=== PATIENT | male | born 1950 | race Caucasian/White ===

== ENCOUNTER 2020-08-15 06:02 | Outpatient (REF) | payer MEDICARE, SELFPAY ==
[2020-08-15 07:04] LABS: Basophils Absolute Auto 0.1 X10*3/uL (0.0-0.2); Basophils Percent Auto 1.1 % (0-2); Eosinophils Absolute Auto 0.2 X10*3/uL (0.0-0.4); Eosinophils Percent Auto 3.7 % (0-4); Hematocrit 42.2 % (42-52); Hemoglobin 13.5 g/dl (14.0-18.0); Imm Gran Abs Auto 0.01 X10*3/uL (0.00-0.03); Imm Gran Pct Auto 0.2 % (0.0-0.4); Lymphocytes Absolute Auto 1.5 X10*3/uL (1.2-4.9); Lymphocytes Percent Auto 34.9 % (20-40); MANUAL DIFF FLAG NO; Mean Corpuscular Hemoglobin 30.1 pg (27.0-33.0); Mean Corpuscular Volume 94.2 fL (80-98); Mean Platelet Volume 9.6 fL (9.4-12.4); Monocytes Absolute Auto 0.4 X10*3/uL (0.1-1.2); Monocytes Percent Auto 9.9 % (2-11); Neutrophils Absolute Auto 2.2 X10*3/uL (2.0-8.3); Neutrophils Percent Auto 50.2 % (45-73); Platelet Count 211 X10*3/uL (160-400); Red Blood Count 4.48 X10*6/uL (4.60-5.80); Red Cell Distribution Width 13.2 % (11.0-16.0); White Blood Count 4.4 X10*3/uL (4.8-10.8)
[2020-08-15 07:50] LABS: Alanine Aminotransferase 18 U/L (0-40); Alkaline Phosphatase 102 U/L (39-117); Anion Gap 10 (12-20); Aspartate Amino Transferase 26 U/L (5-37); Bilirubin Total 0.9 mg/dL (0.0-1.0); Blood Urea Nitrogen 14 mg/dL (9-16); Calcium 9.3 mg/dL (8.4-10.2); Carbon Dioxide 30 mmol/L (22-29); Chloride 104 mmol/L (96-108); Cholesterol 220 mg/dL; Estimated Glomerular Filt Rate > 60; Glucose Fasting 87 mg/dL (60-99); HDL Cholesterol 66 mg/dL; LDL Cholesterol Calculated 138 mg/dl; Potassium 4.3 mmol/l (3.3-5.1); Sodium 140 mmol/L (135-145); Total Protein 6.5 g/dL (6.5-8.0); Triglycerides 80 mg/dL
[2020-08-15 08:14] LABS: Prostate Specific Antigen Scr 2.45 ng/mL (<0.05-4.0)
== END 2020-08-15 06:03 | disposition home or self-care (01) ==
LOC: HO.LAB 06:02
PROVIDERS: PCP Internal Medicine; Visit Provider Internal Medicine
DX: Z00.00 Encounter for general adult medical examination without abnormal findings (principal); E11.9 Type 2 diabetes mellitus without complications; R35.1 Nocturia
CPT/HCPCS: 36415; 80053; 80061; 84153; 85025

== ENCOUNTER 2021-10-27 05:58 | Outpatient (REF) | payer MEDICARE, SELFPAY ==
[2021-10-27 06:07] LABS: MANUAL DIFF FLAG NO
[2021-10-27 07:06] LABS: Basophils Absolute Auto 0.1 X10*3/uL (0.0-0.2); Basophils Percent Auto 1.1 % (0-2); Eosinophils Absolute Auto 0.2 X10*3/uL (0.0-0.4); Eosinophils Percent Auto 3.7 % (0-4); Hematocrit 41.7 % (42.0-52.0); Hemoglobin 13.5 g/dl (14.0-18.0); Imm Gran Abs Auto 0.01 X10*3/uL (0.00-0.03); Imm Gran Pct Auto 0.2 % (0.0-0.4); Lymphocytes Absolute Auto 1.5 X10*3/uL (1.2-4.9); Lymphocytes Percent Auto 33.8 % (20-40); Mean Corpuscular HGB Conc 32.4 g/dl (31.0-36.0); Mean Corpuscular Hemoglobin 30.5 pg (27.0-33.0); Mean Corpuscular Volume 94.1 fL (80.0-98.0); Mean Platelet Volume 9.8 fL (9.4-12.4); Monocytes Absolute Auto 0.5 X10*3/uL (0.1-1.2); Monocytes Percent Auto 11.6 % (2-11); Neutrophils Absolute Auto 2.2 x10*3/uL (2.0-8.3); Neutrophils Percent Auto 49.6 % (45-73); Platelet Count 206 X10*3/uL (160-400); Red Blood Count 4.43 X10*6/uL (4.60-5.80); Red Cell Distribution Width 12.7 % (11.0-16.0); White Blood Count 4.4 X10*3/uL (4.8-10.8)
[2021-10-27 07:12] LABS: Alanine Aminotransferase 15 U/L (0-40); Albumin Level 3.9 g/dL (3.5-5.0); Alkaline Phosphatase 91 U/L (39-117); Anion Gap 10 (12-20); Aspartate Amino Transferase 25 U/L (5-37); Bilirubin Total 0.9 mg/dL (0.0-1.0); Blood Urea Nitrogen 15 mg/dL (9-16); Calcium 9.5 mg/dL (8.4-10.2); Carbon Dioxide 30 mmol/L (22-29); Chloride 105 mmol/L (96-108); Cholesterol 212 mg/dL; Estimated Glomerular Filt Rate > 60; Glucose Fasting 89 mg/dL (60-99); HDL Cholesterol 62 mg/dL; LDL Cholesterol Calculated 135 mg/dl; Potassium 4.5 mmol/L (3.3-5.1); Sodium 140 mmol/L (135-145); Total Protein 6.2 g/dL (6.5-8.0); Triglycerides 78 mg/dL
[2021-10-27 07:34] LABS: Prostate Specific Antigen Scr 2.76 ng/mL (<0.05-4.0)
== END 2021-10-27 05:59 | disposition home or self-care (01) ==
LOC: HO.LAB 05:58
PROVIDERS: PCP Internal Medicine; Visit Provider Internal Medicine
DX: Z00.00 Encounter for general adult medical examination without abnormal findings (principal); Z13.0 Encounter for screening for diseases of the blood and blood-forming organs and certain disorders involving the immune mechanism; Z12.5 Encounter for screening for malignant neoplasm of prostate
CPT/HCPCS: 36415; 80053; 80061; 84153; 85025

== ENCOUNTER 2022-12-31 06:03 | Outpatient (REF) | payer MEDICARE, SELFPAY ==
[2022-12-31 06:11] LABS: MANUAL DIFF FLAG NO
[2022-12-31 06:54] LABS: Basophils Absolute Auto 0.1 X10*3/uL (0.0-0.2); Basophils Percent Auto 1.3 % (0-2); Eosinophils Absolute Auto 0.2 X10*3/uL (0.0-0.4); Eosinophils Percent Auto 3.4 % (0-4); Hematocrit 43.4 % (42.0-52.0); Hemoglobin 14.1 g/dl (14.0-18.0); Imm Gran Abs Auto 0.02 X10*3/uL (0.00-0.03); Imm Gran Pct Auto 0.4 % (0.0-0.4); Lymphocytes Absolute Auto 1.6 X10*3/uL (1.2-4.9); Lymphocytes Percent Auto 33.9 % (20-40); Mean Corpuscular HGB Conc 32.5 g/dl (31.0-36.0); Mean Corpuscular Hemoglobin 30.2 pg (27.0-33.0); Mean Corpuscular Volume 92.9 fL (80.0-98.0); Mean Platelet Volume 9.7 fL (9.4-12.4); Monocytes Absolute Auto 0.5 X10*3/uL (0.1-1.2); Monocytes Percent Auto 9.6 % (2-11); Neutrophils Absolute Auto 2.4 x10*3/uL (2.0-8.3); Neutrophils Percent Auto 51.4 % (45-73); Platelet Count 221 X10*3/uL (160-400); Red Blood Count 4.67 X10*6/uL (4.60-5.80); Red Cell Distribution Width 12.7 % (11.0-16.0); White Blood Count 4.7 X10*3/uL (4.8-10.8)
[2022-12-31 07:47] LABS: Alanine Aminotransferase 17 U/L (0-40); Albumin Level 4.1 g/dL (3.5-5.0); Alkaline Phosphatase 97 U/L (39-117); Anion Gap 11 (12-20); Aspartate Amino Transferase 25 U/L (5-37); Blood Urea Nitrogen 20 mg/dL (9-16); Calcium 9.6 mg/dL (8.4-10.2); Carbon Dioxide 30 mmol/L (22-29); Chloride 107 mmol/L (96-108); Cholesterol 234 mg/dL; Estimated Glomerular Filt Rate > 60; Glucose Fasting 86 mg/dL (60-99); HDL Cholesterol 66 mg/dL; LDL Cholesterol Calculated 152 mg/dl; Potassium 4.2 mmol/L (3.3-5.1); Prostate Specific Antigen Scr 2.79 ng/mL (<0.05-4.0); Sodium 144 mmol/L (135-145); Thyroid Stimulating Hormone 2.31 uIU/mL (0.32-4.0); Total Protein 6.5 g/dL (6.5-8.0); Triglycerides 83 mg/dL
[2022-12-31 08:08] LABS: Phenytoin Dilantin < 1.8 ug/mL (10.0-20.0)
== END 2022-12-31 06:04 | disposition home or self-care (01) ==
LOC: HO.LAB 06:03
PROVIDERS: PCP Internal Medicine; Visit Provider Internal Medicine
DX: Z00.00 Encounter for general adult medical examination without abnormal findings (principal); E03.9 Hypothyroidism, unspecified; G40.909 Epilepsy, unspecified, not intractable, without status epilepticus; N28.9 Disorder of kidney and ureter, unspecified; D64.9 Anemia, unspecified; E78.5 Hyperlipidemia, unspecified; Z12.5 Encounter for screening for malignant neoplasm of prostate
CPT/HCPCS: 36415; 80053; 80061; 80185; 84153; 84443; 85025

== ENCOUNTER 2023-09-27 08:22 | Outpatient (AMB) | payer MEDICARE, SELFPAY ==
[2023-09-27 08:32] VITALS: BP 110/60; PULSE 45; O2SAT 98; BMI 23.0
--- NOTE | 2023-09-27 08:32 | A.OFFPC_ITS ---
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 Accompanied by: Self / Same As Patient Allergies No Known Allergies Allergy (Mild, Verified 09/27/23 08:33) NOT APPLICABLE Medication List - Last Reconciled 09/27/23 by Jaswinder Estevez MD amoxicillin-pot clavulanate 500-125 mg (Augmentin) 1 tab PO BID sildenafil (Viagra) 50 mg PO DAILY PRN Tobacco use date assessed: 09/27/23 Fall risk assessment: No Falls in past year Last assessed Fall Risk: 09/27/23 Dental Screening Dental Screen Date: 09/27/23 Did you have a dental visit in the last 12 months?: Yes Did you have a dental problem in the last 6 months where you did not have access to dental care?: No Was dental information given to patient?: Patient has dentist HPI Frequent Bowel Movement HPI Details urinary frequency and urgency for a month [facility] Surgical History No pertinent past surgical history Family History Father No problems noted. Mother No problems noted. Social History Housing: House Alcohol intake: current Alcohol intake frequency: a few times a month Patient Tobacco Use Status: Never used Tobacco e-Cigarette/Vaping Use: Never Used Second Hand Smoke Exposure: No service: No Current occupational status: retired Cognitive needs: No Hearing needs: No Vision needs: No Questionnaire PHQ-9 Over the last 2 weeks, how often have you been bothered by any of the following problems? 1. Little interest or pleasure in doing things: not at all 2. Feeling down, depressed, or hopeless: not at all 3. Trouble falling or staying asleep, or sleeping too much: not at all 4. Feeling tired or having little energy: not at all 5. Poor appetite or overeating: not at all 6. Feeling bad about yourself - or that you are a failure or have let yourself or your family down: not at all 7. Trouble concentrating on things, such as reading the newspaper or watching television: not at all 8. Moving or speaking so slowly that other people could have noticed. Or the opposite - being so fidgety or restless that you have been moving around a lot more than usual: not at all 9. Thoughts that you would be better off or of hurting yourself in some way: not at all Total score: 0 Depression Screening Interpretation: Negative Depression Screening Done: Yes 72255 - PHQ-9 Billing: Yes Source: Developed by Drs. Maximino Bardales, Nidia Estrella, Kervin Knowles and colleagues, with an educational carmelita from [employer]. Thrive Questionnaire Date Thrive assessed: 09/27/23 I am a: Patient What is your living situation today?: I have a steady place to live Within the past 12 months, did the food you bought not last and you didn't have the money to get more?: Never true Within the past 12 months, did you worry whether your food would run out before you got money to buy more?: Never true Do you have trouble paying for medicines?: No Do you have trouble getting transportation to medical appointments?: No Do you have trouble paying your heating and electricity bill?: No Do you have trouble taking care of your child, family member or friend?: No Do you have trouble with day-to-day activities such as bathing, preparing meals, shopping, managing finances, etc.?: No Are you currently unemployed and looking for a job?: No Are you interested in more education?: No Please select the resources that you would like help with: None THRIVE Score: 0 AUDIT C Alcohol Use Questionnaire (AUDIT-C) 1. How often do you have a drink containing alcohol?: 2-4 times a month 2. How many drinks containing alcohol do you have on a typical day when you are drinking?: 1 or 2 3. How often do you have six or more drinks on one occasion?: Never Total Score: 2 CYNTHIA-7 AMB Questionnaire CYNTHIA-7 Date CYNTHIA - 7 assessed: 09/27/23 Feeling nervous, anxious, or on edge: 0 = Not at all Not being able to stop or control worryin = Not at all Worrying too much about different things: 0 = Not at all Trouble relaxin = Not at all Being so restless that it is hard to sit still: 0 = Not at all Becoming easily annoyed or irritable: 0 = Not at all Feeling afraid as if something awful might happen: 0 = Not at all Total CYNTHIA-7 score (0-4 normal; 5-9 mild; 10-14 moderate; 15-21 severe): 0 Source: Developed by Drs. Maximino Bardales, Nidia Estrella, Kervin Knowles and colleagues, with an educational carmelita from [employer]. Review of Systems Const Denies chills, Denies headache(s) and Denies weight loss ENT Denies headache(s) Card Denies chest pain, Denies syncope, Denies irregular heart rhythm and Denies dyspnea Resp Denies chest congestion, Denies cough and Denies dyspnea GI Denies abdominal pain, Denies change in stool character, Denies nausea and Denies vomiting Musc Denies deformity and Denies joint swelling Neuro Denies syncope and Denies headache(s) Physical exam (Primary Care) Vital Signs: Last Vital Signs Pulse 45 L 09/27/23 08:32 BP 110/60 09/27/23 08:32 Pulse Ox 98 09/27/23 08:32 Oxygen Delivery Method Room Air 09/27/23 08:32 BMI result Body Mass Index 23.0 Tobacco/Smoking Status: Tobacco use Status Tobacco use date assessed 09/27/23 09/27/23 08:38 Patient Tobacco Use Status Never used Tobacco 09/27/23 08:38 e-Cigarette/Vaping Use Never Used 09/27/23 08:38 PHQ-9: PHQ-9 Score PHQ-9: Total score 0 09/27/23 08:39 Depression Screening Interpretation: Negative Thrive Assessment: Date of Thrive Assessment Date Thrive assessed 09/27/23 09/27/23 08:38 Const General: cooperative, comfortable, no acute distress and alert Neck Neck: Yes no lymphadenopathy Thyroid: Thyroid normal Resp Effort & Inspection: normal respiratory effort Auscultation: clear to auscultation bilaterally Percussion: percussion normal Cardio Jugular venous distension: no JVD Palpation: normal PMI Rate: regular rate Rhythm: regular rhythm Heart sounds: S1 normal heart sound present and S2 normal heart sound present GI Inspection: Yes normal to inspection Palpation (GI): No hepatosplenomegaly present Skin General skin exam: no rashes or lesions noted Extrem General: Yes no clubbing, cyanosis or edema Assessment and Plan Assessment & Plan (1) Urinary frequency: Code(s): R35.0 - Frequency of micturition Plan: labs and US Orders: Orders Lipid Panel Today E78.5 - Hyperlipidemia, unspecified Complete Blood Count Auto Diff Today D64.9 - Anemia, unspecified Comprehensive [place]. Panel Fast Today N28.9 - Disorder of kidney and ureter, unspecified UA and rflx microscopic Today N39.0 - Urinary tract infection, site not specified Prostate Specific Antigen Scr Today Z00.00 - Encounter for general adult medical examination without abnormal findings US abdomen complete Today R10.9 - Unspecified abdominal pain Coding Level of Care Code Est Pt Level 3 (26900) Diagnoses Urinary frequency R35.0
== END 2023-09-27 08:52 | disposition home or self-care (01) ==
PROVIDERS: PCP Internal Medicine; Visit Provider Internal Medicine
DX: R35.0 Frequency of micturition (principal)
CPT/HCPCS: 99213

== ENCOUNTER 2023-09-27 08:57 | Outpatient (REF) | payer MEDICARE, SELFPAY ==
[2023-09-27 09:26] LABS: MANUAL DIFF FLAG NO
[2023-09-27 10:11] LABS: Appearance Urine Clear; Color Urine Yellow; Glucose Urine UA Negative (Negative); Leukocyte Esterase Urine Trace (Negative); Nitrite Urine Negative (Negative); PH 6.5 (5.0-9.0); Specific Gravity - Urine 1.015 (1.005-1.025); UMIC TRIGGER UA YES; Urine Blood Negative (Negative); Urine Ketones Negative (Negative); Urine Protein Negative (Neg-Trace)
[2023-09-27 10:13] LABS: Bacteria Urine None Seen (None Seen); Hyaline Casts Urine 0-2 /LPF (0-2); RBC Urine 0-2 /HPF (0-2); Squamous Epithelial Cell Urine 0-2 /HPF (0-2); WBC Urine 0-5 /HPF (0-5)
[2023-09-27 10:15] LABS: Basophils Absolute Auto 0.1 X10*3/uL (0.0-0.2); Basophils Percent Auto 1.3 % (0-2); Eosinophils Absolute Auto 0.2 X10*3/uL (0.0-0.4); Eosinophils Percent Auto 4.5 % (0-4); Hematocrit 42.9 % (42.0-52.0); Hemoglobin 13.8 g/dl (14.0-18.0); Imm Gran Abs Auto 0.01 X10*3/uL (0.00-0.03); Imm Gran Pct Auto 0.3 % (0.0-0.4); Lymphocytes Absolute Auto 1.2 X10*3/uL (1.2-4.9); Mean Corpuscular HGB Conc 32.2 g/dl (31.0-36.0); Mean Corpuscular Hemoglobin 29.4 pg (27.0-33.0); Mean Corpuscular Volume 91.5 fL (80.0-98.0); Mean Platelet Volume 9.8 fL (9.4-12.4); Monocytes Absolute Auto 0.4 X10*3/uL (0.1-1.2); Monocytes Percent Auto 9.5 % (2-11); Neutrophils Absolute Auto 2.2 x10*3/uL (2.0-8.3); Neutrophils Percent Auto 55.4 % (45-73); Platelet Count 200 X10*3/uL (160-400); Red Blood Count 4.69 X10*6/uL (4.60-5.80)
[2023-09-27 10:44] LABS: Alanine Aminotransferase 16 U/L (0-40); Albumin Level 3.8 g/dL (3.5-5.0); Alkaline Phosphatase 113 U/L (39-117); Anion Gap 9 (12-20); Aspartate Amino Transferase 21 U/L (5-37); Bilirubin Total 0.5 mg/dL (0.0-1.0); Blood Urea Nitrogen 12 mg/dL (9-16); Calcium 9.3 mg/dL (8.4-10.2); Carbon Dioxide 31 mmol/L (22-29); Chloride 106 mmol/L (96-108); Cholesterol 198 mg/dL (<200); Estimated Glomerular Filt Rate > 60; Glucose Fasting 89 mg/dL (60-99); HDL Cholesterol 54 mg/dL (>40); LDL Cholesterol Calculated 128 mg/dL (<100); Potassium 4.4 mmol/L (3.3-5.1); Sodium 142 mmol/L (135-145); Total Protein 6.4 g/dL (6.5-8.0); Triglycerides 83 mg/dL (<150)
[2023-09-27 11:00] LABS: Prostate Specific Antigen Scr 3.25 ng/mL (<0.05-4.0)
== END 2023-09-27 08:58 | disposition home or self-care (01) ==
LOC: HO.LAB 08:57
PROVIDERS: PCP Internal Medicine; Visit Provider Internal Medicine
DX: Z00.00 Encounter for general adult medical examination without abnormal findings (principal); E78.5 Hyperlipidemia, unspecified; N28.9 Disorder of kidney and ureter, unspecified; D64.9 Anemia, unspecified; N39.0 Urinary tract infection, site not specified; Z12.5 Encounter for screening for malignant neoplasm of prostate
CPT/HCPCS: 36415; 80053; 80061; 81001; 84153; 85025

== ENCOUNTER 2023-10-06 08:53 | Outpatient (REF) | payer MEDICARE, SELFPAY ==
--- NOTE | ~2023-10-06 | US_ITS ---
EXAMINATION: US ABDOMEN COMPLETE CLINICAL INFORMATION: Abdominal pain. COMPARISON: None available. TECHNIQUE: Real-time imaging of the abdominal viscera. FINDINGS: PANCREAS: Pancreas is obscured by bowel gas and not clearly seen. ABDOMINAL AORTA: The proximal, mid, and distal segments are normal in caliber. INFERIOR VENA CAVA: Visualized portions are normal. LIVER: There is increased echogenicity of the liver due to hepatic steatosis. The liver is normal in size. The liver contour is normal. There are multiple calcified focal lesions measured between 0.3 and 0.4 cm, most likely due to granulomatous disease and no hypoechoic hepatic lesion. There is no intrahepatic biliary duct dilatation seen. GALLBLADDER: The gallbladder is physiologically distended without evidence of stones, sludge, wall thickening or pericholecystic fluid. There is small approximately 0.4 x 0.4 x 0.2 cm polyp. COMMON BILE DUCT: Normal in caliber measuring 0.2 cm in diameter. RIGHT KIDNEY: Normal. No hydronephrosis. No renal calculi or focal parenchymal lesions. The kidney measures 10.0 cm in maximum dimension. LEFT KIDNEY: Normal. No hydronephrosis. No renal calculi or focal parenchymal lesions. The kidney measures 9.6 cm in maximum dimension. SPLEEN: Normal. The spleen measures 10.5 cm in maximum dimension. FREE FLUID: There is loculated fluid collection, too large to measure extending from the sternum to her the urinary bladder without definite connection to the bladder, with thin septations and not vascular Urinary bladder is over distended with single injected on the right visualized and irregularity also wall. There is large amount of post void volume and debris. Visualized prostate is heterogeneous and enlarged. US/US abdomen complete IMPRESSION: 1. Unclear origin cystic structure extending between sternum and urinary bladder along the midline, too large to measure. 2. Over distended urinary bladder with large and irregular wall 3. Prostate hypertrophy 4. Gallbladder polyp 5. Hepatic steatosis 6. Granulomatous disease of liver 7. Nonvisualization of pancreas Recommendations: CT scan of the abdomen and pelvis
== END 2023-10-06 08:54 | disposition home or self-care (01) ==
LOC: HO.HMGCX 08:53
PROVIDERS: PCP Internal Medicine; Visit Provider Internal Medicine
DX: R10.9 Unspecified abdominal pain (principal)
CPT/HCPCS: 76700

== ENCOUNTER 2023-11-24 07:23 | Outpatient (REF) | payer MEDICARE, SELFPAY ==
--- NOTE | ~2023-11-24 | CT_ITS ---
EXAMINATION: CT ABDOMEN AND PELVIS WITH CONTRAST CLINICAL INFORMATION: Abdominal pain. COMPARISON: Abdominal ultrasound 10/06/2023. TECHNIQUE: Multidetector volumetric images were obtained from the superior aspect of the liver through the pubic symphysis following administration 85 mL of Omnipaque 350 intravenous contrast. Sagittal and coronal reformatted images were obtained on the technologist's workstation. Oral contrast: No This CT examination was performed using dose optimization techniques as appropriate, variously including the following: *Automated exposure control *Adjustment of mA and/or kV according to patient size (this includes techniques or standardized protocols for targeted exams where dose is matched to indication/reason for exam; i.e. extremities or head) *Use of iterative reconstruction technique DLP: 304 mGy-cm FINDINGS: LUNG BASES: No suspicious lung nodules. LIVER, GALLBLADDER, AND BILIARY TREE: Liver is normal in size and attenuation. Scattered calcified granulomas. No discrete liver mass. No biliary ductal dilatation. The gallbladder is unremarkable with no evidence of radiopaque gallstones, gallbladder wall thickening, or obvious pericholecystic inflammatory changes. PANCREAS: No discrete pancreatic mass or pancreatic ductal dilatation. SPLEEN: The spleen is normal in size. ADRENAL GLANDS: No adrenal mass. KIDNEYS AND URETERS: 3 mm calculus upper pole left kidney. Punctate calculus lower pole left kidney. No evidence of obstruction. Symmetric nephrograms. No suspicious renal mass. No hydroureteronephrosis. BLADDER: Distended urinary bladder with large superior diverticulum. The bladder measures 15 x 10 x 25 cm for an approximate volume of 1.8 L. Layering calculi at the right posterolateral bladder measuring 1.1 x 2 x 0.7 cm. No discrete intramural mass. GASTROINTESTINAL TRACT: Small hiatal hernia. The small bowel is normal in caliber. Mild colonic diverticulosis. ABDOMINAL WALL: Diastases recti. Small fat-containing umbilical hernia. LYMPH NODES: No lymphadenopathy. VASCULAR: No aortic aneurysm. Mild aortoiliac atherosclerosis. PELVIC VISCERA: The prostate is not enlarged. OSSEOUS STRUCTURES: Degenerative changes in the spine and hips. CT/CT abdomen pelvis w IV con IMPRESSION: Massively distended urinary bladder with large superior diverticulum with estimated volume approximately 1.8 L. Finding corresponds to the recent abdominal ultrasound. No hydronephrosis. Nonobstructing left renal calculi. Fleischner guidelines were followed.
[2023-11-24] MEDS: iohexoL 350 MG/ML 100 ML INFUS..BTL IV (10:26)
[2023-11-24 16:44] LABS: Creatinine POC 0.7 mg/dL (0.5-1.4); GFR POC > 60
== END 2023-11-24 07:24 | disposition home or self-care (01) ==
LOC: HO.CT 07:23
PROVIDERS: PCP Internal Medicine; Visit Provider Internal Medicine
DX: R10.9 Unspecified abdominal pain (principal); N20.0 Calculus of kidney; N32.89 Other specified disorders of bladder
CPT/HCPCS: 74177; 82565; Q9967

== ENCOUNTER 2024-03-06 12:54 | Outpatient (AMB) | payer MEDICARE, SELFPAY ==
--- NOTE | 2024-03-06 13:03 | A.OFFPC_ITS ---
Vital Signs 03/06/24 13:04 Height 5 ft 11 in Weight 161 lb 8 oz BMI 22.5 BP 98/60 Blood Pressure Location Lt brachial Position Sitting Pulse 55 Pulse Source Pulse Oximeter Pulse Oximetry (%) 97 Oxygen Delivery Method Room Air Intake Visit Reasons: pe Intake Note: Patient is here today for a physical. 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 Mother No problems noted. Social History Housing: House Alcohol intake: current Alcohol intake frequency: a few times a month Patient Tobacco Use Status: Never used Tobacco e-Cigarette/Vaping Use: Never Used Second Hand Smoke Exposure: No service: No Current occupational status: retired Cognitive needs: No Hearing needs: No Vision needs: No Questionnaire Thrive Questionnaire Date Thrive assessed: 09/27/23 CYNTHIA-7 AMB Questionnaire CYNTHIA-7 Date CYNTHIA - 7 assessed: 09/27/23 Source: Developed by Drs. Maximino Bardales, Nidia Estrella, Kervin Knowles and colleagues, with an educational carmelita from [employer] Review of Systems Const Denies chills, Denies fatigue, Denies headache(s) and Denies weight loss Eyes Denies change in vision, Denies diplopia and Denies eye pain ENT Denies vertigo, Denies dizziness, Denies headache(s) and Denies nasal discharge Card Denies chest pain, Denies rapid heart rate and Denies dyspnea on exertion Resp Denies chest congestion, Denies cough, Denies pain with cough and Denies dyspnea on exertion GI Denies abdominal pain, Denies hematochezia and Denies change in bowel habits Musc Denies myalgias, Denies arthralgias and Denies joint swelling Skin/Breast Denies lesions and Denies unusual bruising Neuro Denies vertigo, Denies dizziness, Denies headache(s) and Denies focal weakness Endo Denies fatigue Physical exam (Primary Care) Vital Signs: Last Vital Signs Pulse 55 03/06/24 13:04 BP 98/60 03/06/24 13:04 Pulse Ox 97 03/06/24 13:04 Oxygen Delivery Method Room Air 03/06/24 13:04 BMI result Body Mass Index 22.5 Tobacco/Smoking Status: Tobacco use Status Tobacco use date assessed 03/06/24 03/06/24 13:07 Patient Tobacco Use Status Never used Tobacco 03/06/24 13:07 e-Cigarette/Vaping Use Never Used 03/06/24 13:07 Thrive Assessment: Date of Thrive Assessment Date Thrive assessed 09/27/23 03/06/24 13:07 Const General: cooperative, healthy appearing and no acute distress Orientation/consciousness: oriented to person, oriented to place and oriented to time HENMT Head: Yes normal to inspection, Yes normocephalic and Yes atraumatic Mouth: Normal oral and palatal mucosa present and tongue normal Throat: Yes posterior oropharynx normal and Yes uvula midline Eyes General: appearance normal, both eyes and all related structures Neck Neck: Yes normal visual inspection, Yes full ROM and Yes no lymphadenopathy Thyroid: Thyroid normal Carotids: normal carotid upstroke Chest Chest palpation & inspection: normal inspection of the chest Resp Effort & Inspection: normal respiratory effort and able to speak in complete sentences Auscultation: clear to auscultation bilaterally Cardio Jugular venous distension: no JVD Palpation: normal PMI Rate: regular rate Rhythm: regular rhythm Heart sounds: S1 normal heart sound present and S2 normal heart sound present GI Inspection: Yes normal to inspection Palpation (GI): Soft to palpation and No hepatosplenomegaly present Auscultation: normal bowel sounds Other: bladder distended Skin General skin exam: no rashes or lesions noted Neuro General: oriented to person, oriented to place and oriented to time Extrem General: Yes normal to inspection and Yes full ROM Assessment and Plan Assessment & Plan (1) Physical exam: Code(s): Z00.00 - Encounter for general adult medical examination without abnormal findings Plan: stable (2) Bladder distended: Code(s): N32.89 - Other specified disorders of bladder Plan: referred to urol Orders: Orders Complete Blood Count Auto Diff Today Z13.0 - Encounter for screening for diseases of the blood and blood-forming organs and certain disorders involving the immune mechanism Lipid Panel Today Z13.220 - Encounter for screening for lipoid disorders Comprehensive [place]. Panel Fast Today Z13.9 - Encounter for screening, unspecified Referrals Urology Referral N32.89 - Other specified disorders of bladder Coding Level of Care Code Est Pt Prev Care >65y(98649) Diagnoses Physical exam Z00.00 Bladder distended N32.89
[2024-03-06 13:04] VITALS: BP 98/60; PULSE 55; O2SAT 97; BMI 22.5
== END 2024-03-06 15:29 | disposition home or self-care (01) ==
PROVIDERS: PCP Internal Medicine; Visit Provider Internal Medicine
DX: Z00.00 Encounter for general adult medical examination without abnormal findings (principal); N32.89 Other specified disorders of bladder
CPT/HCPCS: 99397

== ENCOUNTER 2024-03-09 06:10 | Outpatient (REF) | payer MEDICARE, SELFPAY ==
[2024-03-09 06:26] LABS: MANUAL DIFF FLAG NO
[2024-03-09 07:20] LABS: Basophils Absolute Auto 0.1 X10*3/uL (0.0-0.2); Basophils Percent Auto 0.9 % (0-2); Eosinophils Absolute Auto 0.2 X10*3/uL (0.0-0.4); Eosinophils Percent Auto 3.4 % (0-4); Hematocrit 42.2 % (42.0-52.0); Imm Gran Abs Auto 0.01 X10*3/uL (0.00-0.03); Imm Gran Pct Auto 0.2 % (0.0-0.4); Lymphocytes Absolute Auto 1.3 X10*3/uL (1.2-4.9); Lymphocytes Percent Auto 24.1 % (20-40); Mean Corpuscular HGB Conc 33.2 g/dl (31.0-36.0); Mean Corpuscular Hemoglobin 30.5 pg (27.0-33.0); Mean Corpuscular Volume 91.9 fL (80.0-98.0); Monocytes Absolute Auto 0.6 X10*3/uL (0.1-1.2); Monocytes Percent Auto 10.1 % (2-11); Neutrophils Absolute Auto 3.4 x10*3/uL (2.0-8.3); Neutrophils Percent Auto 61.3 % (45-73); Platelet Count 186 X10*3/uL (160-400); Red Blood Count 4.59 X10*6/uL (4.60-5.80); Red Cell Distribution Width 13.2 % (11.0-16.0); White Blood Count 5.5 X10*3/uL (4.8-10.8)
[2024-03-09 07:29] LABS: Appearance Urine Clear; Color Urine Yellow; Glucose Urine UA Negative (Negative); Leukocyte Esterase Urine Negative (Negative); Nitrite Urine Negative (Negative); Specific Gravity - Urine 1.015 (1.005-1.025); Urine Blood Negative (Negative); Urine Ketones Negative (Negative); Urine Protein Negative (Neg-Trace)
[2024-03-09 07:53] LABS: Alanine Aminotransferase 15 U/L (0-40); Albumin Level 3.9 g/dL (3.5-5.0); Alkaline Phosphatase 88 U/L (39-117); Anion Gap 16 (12-20); Aspartate Amino Transferase 21 U/L (5-37); Bilirubin Total 0.9 mg/dL (0.0-1.0); Blood Urea Nitrogen 18 mg/dL (9-16); Calcium 9.7 mg/dL (8.4-10.2); Carbon Dioxide 24 mmol/L (22-29); Chloride 106 mmol/L (96-108); Cholesterol 199 mg/dL (<200); Estimated Glomerular Filt Rate > 60; Glucose Fasting 91 mg/dL (60-99); HDL Cholesterol 64 mg/dL (>40); LDL Cholesterol Calculated 121 mg/dL (<100); Potassium 3.8 mmol/L (3.3-5.1); Sodium 142 mmol/L (135-145); Total Protein 6.2 g/dL (6.5-8.0); Triglycerides 70 mg/dL (<150)
== END 2024-03-09 06:11 | disposition home or self-care (01) ==
LOC: HO.LAB 06:10
PROVIDERS: PCP Internal Medicine; Visit Provider Internal Medicine
DX: Z13.0 Encounter for screening for diseases of the blood and blood-forming organs and certain disorders involving the immune mechanism (principal); N39.0 Urinary tract infection, site not specified; Z13.9 Encounter for screening, unspecified; Z13.220 Encounter for screening for lipoid disorders
CPT/HCPCS: 36415; 80053; 80061; 81003; 85025

== ENCOUNTER 2024-04-20 09:50 | Outpatient (AMB) | payer MEDICARE, SELFPAY ==
--- NOTE | 2024-04-20 10:25 | A.OFFVIS_ITS ---
Intake Visit Reasons: kidney stones/bladder stones Intake Note: New patient is present for Kidney/Bladder stones/Frequency Urology Med: Sildenafil Antibiotic Allergy: None Blood Thinner: None Patient states no pain on either flank sides No pain when urination Patient states current CT Scan stated he has bladder distention PVR: 893 Access Director Required: No Accompanied by: Self / Same As Patient Allergies No Known Allergies Allergy (Mild, Verified 03/06/24 13:04) NOT APPLICABLE HPI Comments Details: Tim is a very pleasant male. He is a patient of . He is seen for the following urologic conditions - incomplete bladder emptying - bladder diverticula Extraordinarily large dilated bladder Minimal urinary symptoms Will follow-up in 6 months States has adequate stream, minimal nocturia, feels he has effective emptying in his able to go 2-3 hours in between urinating His primary symptom is a feeling of rectal fullness Finds he tries to empty his bowel and there is nothing present At that point he will then urinate and the rectal pressure will resolve CT finding - extraordinarily large dilated bladder, 28 cm long by 15 cm x 10 cm. Minimum volume proximally 4000 cc Creatinine 1.0 PSA 10/16 3.3 PFSH Surgical History No pertinent past surgical history Family History (Updated 03/06/24 @ 13:03 by GAGE Polo) Father No problems noted. Mother No problems noted. Social History Housing: House Alcohol intake: current Alcohol intake frequency: a few times a month Patient Tobacco Use Status: Never used Tobacco e-Cigarette/Vaping Use: Never Used Second Hand Smoke Exposure: No service: No Current occupational status: retired Cognitive needs: No Hearing needs: No Vision needs: No Review of Systems Const Denies chills and Denies fever(s) Card Reports no additional complaints and Denies syncope Resp Denies cough GI Denies abdominal pain and Denies heartburn Reports as per HPI and Denies change in libido Neuro Denies syncope Psych Denies change in libido Endo Denies change in libido Physical Exam Const General: cooperative, healthy appearing, comfortable and no acute distress Orientation/consciousness: patient oriented x3 HEENT Face and sinus: Yes normal facial exam Mouth: moist mucous membranes Neck Neck: Yes normal visual inspection, Yes full ROM and Yes trachea midline Chest Chest palpation & inspection: normal inspection of the chest Resp Effort & Inspection: normal respiratory effort, able to speak in complete sentences and no respiratory distress GI Inspection: Yes normal to inspection Back/Spine/Pelvis Cervical Spine: normal cervical lordosis Thoracic/Lumbar Spine: thoracic and lumbar spine normal to inspection Skin General skin exam: no rashes or lesions noted Neuro General: patient oriented x3, gait normal, tone normal and moves all extremities Extrem General: Yes normal to inspection and Yes capillary refill normal Office Procedures Post Void Residual Post Residual Void Post Void Residual (PVR): [id number] Void Residual by ultrasound Assessment & Plan Assessment & Plan (1) Bladder diverticulum: Code(s): N32.3 - Diverticulum of bladder Category: Medical Plan Six-month follow-up Orders: Orders AMB Post Void Residual by ultrasound Today N32.89 - Other specified disorders of bladder Patient Instructions: Imaging studies, laboratory and physical exam results were discussed and reviewed in detail. No major barriers to patient understanding were identified. An opportunity to ask questions regarding the treatment plan was provided. All questions were answered. The patient expressed understanding and agreement with the above treatment plan. The patient is aware they should contact our office by phone for worsening of their current condition or the appearance of new urologic symptoms. Compliance is encouraged with any medications and followup testing that is ordered. It is a privilege to participate in the urologic care of your patient. If you have any questions or concerns regarding treatment for the above conditions, or other urologic issues, please do not hesitate to contact me. The office telephone contact is [phone]. This note is constructed using voice recognition software. While every effort has been made to ensure accuracy supervisor insecticide errors may have been included. Yours sincerely, Dr Lion Salgado MD, TESFA[facility] - Urology Providers of Expert, Compassionate Care for the Genitourinary System Coding Level of Care Code New Pt Level 4 (13549) Diagnoses Bladder diverticulum N32.3 CPT Codes Post Residual Void - PVR CPT Code: 08010-Wyhf Void Residual by ultrasound ([id number])
== END 2024-04-20 11:10 | disposition home or self-care (01) ==
PROVIDERS: PCP Internal Medicine; Visit Provider Urology
DX: N32.3 Diverticulum of bladder (principal)
CPT/HCPCS: 99204

== ENCOUNTER → 2024-04-20 09:50 | Outpatient (BNVA) | payer MEDICARE, SELFPAY | PROVIDERS: PCP Internal Medicine; Visit Provider Urology | DX: N32.3 Diverticulum of bladder (principal) | CPT/HCPCS: 51798; 99202 ==

== ENCOUNTER 2024-10-20 09:36 | Outpatient (AMB) | payer MEDICARE, SELFPAY ==
--- NOTE | 2024-10-20 09:42 | MHC.OFFVIS ---
Intake Visit Reasons: 6M PVR Intake Note: Pt presents to the office today for a 6 month follow up PVR. PVR:848mL Allergies No Known Allergies Allergy (Mild, Verified 10/20/24 09:42) NOT APPLICABLE HPI Comments Details: Tim is a very pleasant male. He is a patient of . He is seen for the following urologic conditions - incomplete bladder emptying - bladder diverticula Six-month follow-up Discussed trial of bethanechol with uroflow Extraordinarily large dilated bladder Minimal urinary symptoms States has adequate stream, minimal nocturia, feels he has effective emptying in his able to go 2-3 hours in between urinating His primary symptom is a feeling of rectal fullness Finds he tries to empty his bowel and there is nothing present At that point he will then urinate and the rectal pressure will resolve CT finding - extraordinarily large dilated bladder, 28 cm long by 15 cm x 10 cm. Minimum volume proximally 4000 cc Creatinine 1.0 PSA 10/16 3.3 PFSH Surgical History No pertinent past surgical history Family History Father No problems noted. Mother No problems noted. Social History Housing: House Alcohol intake: current Alcohol intake frequency: a few times a month Patient Tobacco Use Status: Never used Tobacco e-Cigarette/Vaping Use: Never Used Second Hand Smoke Exposure: No service: No Current occupational status: retired Cognitive needs: No Hearing needs: No Vision needs: No Review of Systems Const Denies chills and Denies fever(s) Card Reports no additional complaints and Denies syncope Resp Denies cough GI Denies abdominal pain and Denies heartburn Reports as per HPI and Denies change in libido Neuro Denies syncope Psych Denies change in libido Endo Denies change in libido Physical Exam Const General: cooperative, healthy appearing, comfortable and no acute distress Orientation/consciousness: patient oriented x3 HEENT Face and sinus: Yes normal facial exam Mouth: moist mucous membranes Neck Neck: Yes normal visual inspection, Yes full ROM and Yes trachea midline Chest Chest palpation & inspection: normal inspection of the chest Resp Effort & Inspection: normal respiratory effort, able to speak in complete sentences and no respiratory distress GI Inspection: Yes normal to inspection Back/Spine/Pelvis Cervical Spine: normal cervical lordosis Thoracic/Lumbar Spine: thoracic and lumbar spine normal to inspection Skin General skin exam: no rashes or lesions noted Neuro General: patient oriented x3, gait normal, tone normal and moves all extremities Extrem General: Yes normal to inspection and Yes capillary refill normal Office Procedures Post Void Residual Post Residual Void Post Void Residual (PVR): 848 [id number]-Xooh Void Residual by ultrasound Assessment & Plan Assessment & Plan (1) Bladder diverticulum: Code(s): N32.3 - Diverticulum of bladder Category: Medical (2) Urinary retention with incomplete bladder emptying: Code(s): R33.9 - Retention of urine, unspecified Category: Medical Plan Plan I plan to initiate Bethanechol for improved bladder constriction. I will conduct uroflowmetry to evaluate urination function. Tibial nerve stimulation, sheba to a bladder pacemaker, was discussed as an optional treatment. Further detailed urodynamic studies with catheterization are available but not prioritized at this time. We will monitor treatment efficacy closely. Discussion Notes I discussed with the patient the ongoing management of his bladder diverticula and the challenges of incomplete bladder emptying. I explained the treatment with Bethanechol, aimed at enhancing bladder contractility, and described the uroflowmetry test as a means to measure urinary stream force and volume. The alternative treatment involving tibial nerve stimulation was discussed, highlighting the potential for a 50% success rate, with a trial placement of leads. Risks and benefits of each approach were explained, and the patient consented to start on Bethanechol. Follow-up focuses on treatment effectiveness, with arrangements for uroflowmetry testing to better inform ongoing management. I emphasized documenting urination characteristics and reassessing strategies if necessary. Patient Instructions - Begin taking Bethanechol as prescribed. - Return for uroflowmetry testing as scheduled. - Monitor and note characteristics of urinary stream and duration at home. - Be aware of the potential for further testing or treatment adjustments based on results. - Inform your spouse about the Bethanechol usage and keep them updated on treatment. Orders: Orders AMB Post Void Residual by ultrasound Today R35.0 - Frequency of micturition Medications: New bethanechol chloride 50 mg PO BID 30 days 60 tabs 1RF N32.3 - Diverticulum of bladder, N39.0 - Urinary tract infection, site not specified Patient Instructions: This note is constructed using voice recognition software. While every effort has been made to ensure accuracy tack cleaner errors may have been included. Imaging studies, laboratory and physical exam results were discussed and reviewed in detail. No major barriers to patient understanding were identified. An opportunity to ask questions regarding the treatment plan was provided. All questions were answered. The patient expressed understanding and agreement with the above treatment plan. The patient is aware they should contact our office by phone for worsening of their current condition or the appearance of new urologic symptoms. Compliance is encouraged with any medications and followup testing that is ordered. It is a privilege to participate in the urologic care of your patient. If you have any questions or concerns regarding treatment for the above conditions, or other urologic issues, please do not hesitate to contact me. The office telephone contact is [phone]. Sincerely, Dr Lion Salgado MD, TESFAYE [facility] - Urology Compassionate Specialist Care for the Genitourinary System Coding Level of Care Code Est Pt Level 4 (17267) Diagnoses Bladder diverticulum N32.3 Urinary retention with incomplete bladder emptying R33.9 CPT Codes Post Residual Void - PVR CPT Code: 91669-Nogc Void Residual by ultrasound ([id number])
--- OUTSIDE RECORDS SUMMARY | 2024-10-20 10:22 | XMS_ITS | Patient Health Record ---
Author Organization [facility] [address] [address] Address [address] [place] [address] Care Team Providers Care Auto Transmission Mechanic Name Role Phone Sade BECERRA, [facility] Primary Care Provider Unavail able Adolfo Mac Unavailable [phone] Allergies No Known Allergies Reason For Referral No Information Medications Medication SIG (Take, Route, Fr equency, Duration) Notes Start Date End Date Status Walking Boot/Pneumatic As directed Wear Daily for Until further notice Active Social History Tobacco Use: Social History Observation Description Date Details (start date - stop date) Never Smoker NA - NA Tobacco Use/Smoking Question Answer Notes Are you a: nonsmoker Additional Findings: Tobacco Non-User Current no n-smoker Alcohol Screen Question Answer Notes Did you have a drink contain ing alcohol in the past year? Yes How often did you have a dri nk containing alcohol in the past year? 2 to 4 times a month (2 points) Points 2 Interpretation Negative Tobacco use other than smoking: Question Answer Notes Are you an other tobacco user? No Problems Problem Type SNOMED Code ICD Code Onset Dates Problem Status W/U Status Risk Notes Problem Acquired hallux valgus (85710773) Hallux valgus (acquired), left foot (M20.12) Active confirmed Problem Acquired hammer toe of right foot (6204572919608 105) Other hammer toe(s) (acquired), right foot (M20.41) Active confirmed Problem Acquired hammer toe of left foot (0350298460692 103) Other hammer toe(s) (acquired), left foot (M20.42) Active confirmed Plan Of Treatment Pending Test Test Name Order Date X ray : Foot, right 3V 10/25/2019 Insurance Providers Payer Name Payer Address Payer Phone Subscriber Number Group Number Insured Name Patient Relationship to Insured Coverage Start Date Coverage End Date [facility] 65 Medicare Preferred [address] [place] [address] [id number] Tim Bernabe Self - patient is the insured Medical (General) History Medical History History ICD Code Polio Chicken pox Surgical History Surgery Date(Month/Year) cataract surgery 10/2021
--- OUTSIDE RECORDS SUMMARY | 2024-10-20 10:22 | XMS_ITS | Clinical Summary ---
Author Organization [facility] [address] [facility] Address [address] [place] [address] Care Team Providers Care Inspecting Supervisor Name Role Phone Kayley Stuart MD Primary Care Provider [phone] Medications No known medications Immunizations Name Administration Dates Next Due Tdap 08/22/2016 Social History Tobacco Use Types Packs/Day Years Used Date Smoking Tobacco: Never Alcohol Use Standard Drinks/Week Comments No 0 (1 standard drink = 0.6 oz pur e alcohol) Sex and Gender Information Value Date Recorded Sex Assigned at Not on file Legal Sex Male 11:36 AM EST Gender Identity Not on file Sexual Orientation Not on file Last Filed Vital Signs Vital Sign Reading Time Taken Comments Blood Pressure 119/76 08/22/2016 11:44 AM EST Pulse 50 08/22/2016 11:44 AM EST Temperature 36.6 ??C (97.8 ??F) 08/22/2016 11:[address] Respiratory Rate 18 08/22/2016 11:44 AM EST Oxygen Saturation 100% 08/22/2016 11:44 AM EST Inhaled Oxygen Concentration - - Weight 77.1 kg (170 lb) 08/22/2016 11:44 AM EST Height - - Body Mass Index - - Plan of Treatment Health Maintenance Due Date Last Done Comments HIV screening 11/15/1963 Hepatitis C screening 1968 Lipid disorder screening 1990 Colon cancer screening, Colonoscopy 11/15/1995 Diabetes screening 11/15/1995 Shingles vaccine (Shingrix) (1 of 2 - Shingrix (RZV) 2 Dose Standard Series) 2000 Pneumococcal Vaccine (50+ ye ars) (1 of 1 - PCV) 11/15/2015 Influenza vaccine 03/23/2024 Covid-19 vaccine series (2023-25 season) 2024 RSV Discussion (1 - 1-dose 7 5+ series) 2025 Tetanus adult (Td q 10,TDAP once) 08/22/2026 016 Meningococcal Vaccine Aged Out No [place] eligible based on patient's age to complete this topic Insurance DIVERSIFIED ADMIN Member Subscriber Plan / Payer (Ef fective 2014-Present) Name:Tim Bernabe Relation to Subscriber:Self Name:Tim Bernabe Payer ID:[id number] Group ID:[id number] Type:Not on file Address: [address] [address] DIVERSIFIED ADMIN Member Subscriber Plan / Payer (Ef fective 2014-Present) Name:Tim Bernabe Relation to Subscriber:Self Name:Tim Bernabe Payer ID:[id number] Group ID:[id number] Type:Not on file Address: [address] [address] DIVERSIFIED ADMIN Member Subscriber Plan / Payer (Ef fective 2014-Present) Name:Tim Bernabe Relation to Subscriber:Self Name:Tim Bernabe Payer ID:[id number] Group ID:[id number] Type:Not on file Address: [address] [place] [address] DIVERSIFIED ADMIN Member Subscriber Plan / Payer (Ef fective 2014-Present) Name:Srinivasa Tim Relation to Subscriber:Self Name:SrinivasaTim Payer ID:[id number] Group ID:[id number] Type:Not on file Address: [facility] [address] [place] [address] Care Teams Inspecting Supervisor Relationship Specialty Start Date End Date Kayley Stuart MD [address] [place] [address] [place] [address] PCP - General Internal Medicine 08/22/16
== END 2024-10-20 10:30 | disposition home or self-care (01) ==
PROVIDERS: PCP Internal Medicine; Visit Provider Urology
DX: N32.3 Diverticulum of bladder (principal); R33.9 Retention of urine, unspecified
CPT/HCPCS: 99214

== ENCOUNTER → 2024-10-20 09:36 | Outpatient (BNVA) | payer MEDICARE, SELFPAY | PROVIDERS: PCP Internal Medicine; Visit Provider Urology | DX: N32.3 Diverticulum of bladder (principal); R33.9 Retention of urine, unspecified | CPT/HCPCS: 51798; 99212 ==

== ENCOUNTER 2024-12-12 08:49 | Outpatient (AMB) | payer MEDICARE, SELFPAY ==
[2024-12-12 08:54] VITALS: BMI 22.5
--- NOTE | 2024-12-12 08:54 | A.OFFVIS_ITS ---
Vital Signs 12/12/24 08:54 Height 5 ft 11 in Weight 161 lb BMI 22.5 Intake Visit Reasons: Follow up w/Uroflow Intake Note: Pt presents to the office today for follow up and uroflow. PVR: 24ml's Allergies No Known Allergies Allergy (Mild, Verified 10/20/24 09:42) NOT APPLICABLE HPI Comments Details: Tim is a very pleasant male. He is a patient of . He is seen for the following urologic conditions - incomplete bladder emptying - bladder diverticula Urodynamics Uroflow following trial of bethanechol Q max 8.8 with average 4.4. Voided volume 421. Void time 65 seconds. PVR 24 cc Poorly functioning bladder but significant improvement with bethanechol Discussed results Continue with bethanechol Six-month follow-up PVR Lower urinary tract symptoms Extraordinarily large dilated bladder Minimal urinary symptoms States has adequate stream, minimal nocturia, feels he has effective emptying in his able to go 2-3 hours in between urinating His primary symptom is a feeling of rectal fullness Finds he tries to empty his bowel and there is nothing present At that point he will then urinate and the rectal pressure will resolve CT finding - extraordinarily large dilated bladder, 28 cm long by 15 cm x 10 cm. Minimum volume proximally 4000 cc Creatinine 1.0 PSA 10/16 3.3 PFSH Surgical History No pertinent past surgical history Family History Father No problems noted. Mother No problems noted. Social History Housing: House Alcohol intake: current Alcohol intake frequency: a few times a month Patient Tobacco Use Status: Never used Tobacco e-Cigarette/Vaping Use: Never Used Second Hand Smoke Exposure: No service: No Current occupational status: retired Cognitive needs: No Hearing needs: No Vision needs: No Review of Systems Const Denies chills and Denies fever(s) Card Reports no additional complaints and Denies syncope Resp Denies cough GI Denies abdominal pain and Denies heartburn Reports as per HPI and Denies change in libido Neuro Denies syncope Psych Denies change in libido Endo Denies change in libido Physical Exam Vital Signs: BMI result Body Mass Index 22.5 Const General: cooperative, healthy appearing, comfortable and no acute distress Orientation/consciousness: patient oriented x3 HEENT Face and sinus: Yes normal facial exam Mouth: moist mucous membranes Neck Neck: Yes normal visual inspection, Yes full ROM and Yes trachea midline Chest Chest palpation & inspection: normal inspection of the chest Resp Effort & Inspection: normal respiratory effort, able to speak in complete sente nces and no respiratory distress GI Inspection: Yes normal to inspection Back/Spine/Pelvis Cervical Spine: normal cervical lordosis Thoracic/Lumbar Spine: thoracic and lumbar spine normal to inspection Skin General skin exam: no rashes or lesions noted Neuro General: patient oriented x3, gait normal, tone normal and moves all extremities Extrem General: Yes normal to inspection and Yes capillary refill normal Office Procedures Post Void Residual Post Residual Void Post Void Residual (PVR): 24 11730-Abwv Void Residual by ultrasound AMB Uroflow Complex uroflow performed by: Lion Salgado Maximum urinary flow rate (mL/second): 8.5 Voiding time (seconds): 65 Voided volume (mL): 420 Residual urine (mL): 24 64260-Ossfntj-Asixhkntapll Procedure code (CPT) selection complete Assessment & Plan Assessment & Plan (1) Urinary retention with incomplete bladder emptying: Code(s): R33.9 - Retention of urine, unspecified Category: Medical (2) Bladder distended: Code(s): N32.89 - Other specified disorders of bladder Category: Medical Plan Six-month follow-up PVR Orders: Orders AMB Post Void Residual by ultrasound Today R33.9 - Retention of urine, unspecified AMB Uroflow Today R33.9 - Retention of urine, unspecified Medications: Changed From bethanechol chloride 50 mg PO BID 30 days 60 tabs 1RF N32.3 - Diverticulum of bladder, N39.0 - Urinary tract infection, site not specified To bethanechol chloride 50 mg PO BID 90 days 180 tabs 1RF N32.3 - Diverticulum of bladder, N39.0 - Urinary tract infection, site not specified Patient Instructions: This note is constructed using voice recognition software. While every effort has been made to ensure accuracy equipment operator/laborer/supervisor errors may have been included. Imaging studies, laboratory and physical exam results were discussed and reviewed in detail. No major barriers to patient understanding were identified. An opportunity to ask questions regarding the treatment plan was provided. All questions were answered. The patient expressed understanding and agreement with the above treatment plan. The patient is aware they should contact our office by phone for worsening of their current condition or the appearance of new urologic symptoms. Compliance is encouraged with any medications and followup testing that is ordered. It is a privilege to participate in the urologic care of your patient. If you have any questions or concerns regarding treatment for the above conditions, or other urologic issues, please do not hesitate to contact me. The office telephone contact is [phone]. Sincerely, Dr Lion Salgado MD, TESFAYE [facility] - Urology Compassionate Specialist Care for the Genitourinary System Coding Level of Care Code Est Pt Level 3 (38035) Complex EM visit Add On G2211 Diagnoses Urinary retention with incomplete bladder emptying R33.9 Bladder distended N32.89 CPT Codes Post Residual Void - PVR CPT Code: 64508-Prmw Void Residual by ultrasound ([id number])
--- OUTSIDE RECORDS SUMMARY | 2024-12-12 09:11 | XMS_ITS | Clinical Summary ---
Author Organization [facility] [address] Address [address] [place] [address] Care Team Providers Care Group Work Program Director Name Role Phone Kayley Stuart MD Primary Care Provider [phone] Medications No known medications Immunizations Name Administration [...] cancer screening, Colonoscopy 11/15/1995 Diabetes screening 11/15/1995 Pneumococcal Vaccine (50+ ye ars) (1 of 1 - PCV) 2000 Shingles vaccine (Shingrix) (1 of 2 - Shingrix (RZV) 2 Dose Standard Series) 2000 Covid-19 vaccine series ( - 2023-25 season) 2024 Influenza vaccine 04/23/2025 RSV Immunization (1 - 1-dose 75+ series) 2025 Tetanus adult (Td q 10,TDAP once) 08/22/2026 016 Meningococcal Vaccine Aged Out No [place] eligible based on patient's age to complete this topic Insurance DIVERSIFIED ADMIN Member Subscriber Plan / Payer (Ef fective 2014-Present) Name:Tim Bernabe Relation to Subscriber:Self Name:Tim Bernabe Payer ID:[id number] Group ID:[id number] Type:Not on file Address: [address] [address] DIVERSIFIED ADMIN Member Subscriber Plan / Payer (Ef fective 2014-Present) Name:Tim Bernabe Relation to Subscriber:Self Name:Tim Bernabe Payer ID:[id number] Group ID:[id number] Type:Not on file Address: [address] [address] DIVERSIFIED ADMIN Member Subscriber Plan / Payer (Ef fective 2014-Present) Name:Tim Bernabe Relation to Subscriber:Self Name:Tim Bernabe Payer ID:[id number] Group ID:[id number] Type:Not on file Address: [address] [place] [address] DIVERSIFIED ADMIN Member Subscriber Plan / Payer (Ef fective 2014-Present) Name:Srinivasa Tim Relation to Subscriber:Self Name:Tim Bernabe Payer ID:[id number] Group ID:[id number] Type:Not on file Address: [facility] [address] [place] [address] Care Teams Group Work Program Director Relationship Specialty Start Date End Date Kayley Stuart MD [address] [place] [address] [place] [address] PCP - General Internal Medicine 08/22/16
--- OUTSIDE RECORDS SUMMARY | 2024-12-12 09:11 | XMS_ITS | Patient Health Record ---
Author Organization [facility] [place] Address [address] [place] [address] Care Team Providers Care Plumbing Designer Name Role Phone Sade BECERRA, [facility] Primary Care Provider Unavail able Adolfo Mac Unavailable [phone] Allergies No Known Allergies Reason For Referral [...] Status Risk Notes Problem Acquired hallux valgus (12673260) Hallux valgus (acquired), left foot (M20.12) Active confirmed Problem Acquired hammer toe of right foot (9396704133568 105) Other hammer toe(s) (acquired), right foot (M20.41) Active confirmed Problem Acquired hammer toe of left foot (2072580008274 103) Other hammer toe(s) (acquired), left foot (M20.42) Active confirmed Plan Of Treatment Pending Test Test Name Order Date X ray : Foot, right 3V 10/25/2019 Insurance Providers Payer Name Payer Address Payer Phone Subscriber Number Group Number Insured Name Patient Relationship to Insured Coverage Start Date Coverage End Date [facility] 65 Medicare Preferred [address] [place] [address] [id number] Tim Bernabe Self - patient is the insured Medical (General) History Medical History History ICD Code Polio Chicken pox Surgical History Surgery Date(Month/Year) cataract surgery 10/2021
== END 2024-12-12 10:15 | disposition home or self-care (01) ==
LOC: HO.HUSH 08:50
PROVIDERS: PCP Internal Medicine; Visit Provider Urology
DX: R33.9 Retention of urine, unspecified (principal); N32.89 Other specified disorders of bladder
CPT/HCPCS: 99213; G2211

== ENCOUNTER → 2024-12-12 08:49 | Outpatient (BNVA) | payer MEDICARE, SELFPAY | PROVIDERS: PCP Internal Medicine; Visit Provider Urology | DX: R33.9 Retention of urine, unspecified (principal); N32.3 Diverticulum of bladder; N39.0 Urinary tract infection, site not specified; N32.89 Other specified disorders of bladder | CPT/HCPCS: 51798; 99212 ==

== ENCOUNTER 2025-03-07 14:19 | Outpatient (AMB) | payer MEDICARE, SELFPAY ==
--- NOTE | 2025-03-07 14:23 | MHC.PC.OV ---
Vital Signs 03/07/25 14:24 Height 5 ft 11 in Weight 161 lb BMI 22.5 BP 106/66 Blood Pressure Location Lt brachial Position Sitting Respiration 18 Pulse 62 Pulse Source Auscultation Temp 99.0 F Temp Source Oral Pulse Oximetry (%) 97 Oxygen Delivery Method Room Air Intake Visit Reasons: annual exam/maribell Dr Estevez Net Finisher Required: No Accompanied by: Self / Same As Patient Allergies No Known Allergies Allergy (Mild, Verified 03/07/25 14:36) NOT APPLICABLE Medication List - Last Reconciled 03/07/25 by SOMMER Loya bethanechol chloride 50 mg PO BID 90 days sildenafil (Viagra) 50 mg PO DAILY PRN sildenafil 100 mg PO DAILY PRN Tobacco use date assessed: 03/06/24 Fall risk assessment: No Falls in past year Last assessed Fall Risk: 03/07/25 Dental Screening Dental Screen Date: 03/07/25 Did you have a dental visit in the last 12 months?: No Did you have a dental problem in the last 6 months where you did not have access to dental care?: No Was dental information given to patient?: Patient has dentist HPI annual exam/maribell Dr Estevez HPI Details Dentist: up to date Eye: up to date Snellen: Right: Left: Corrected vision:yes, glasses STI screening: Colonoscopy: reports that he had a cologuard about 5 years and a colonoscopy many years ago and they all been good Pap Smer:n/a PHQ-9: Flu:up to date COVID: x4 Tdap:will hold off for now, the patient is going on vacation tomorrow Diet:regular Exercise:play tennis 2-3 times a week and walks up 5 miles on the day he does not play tennis The patient is a 74-year-old male presenting for an annual physical examination and transition of care. The patient has a history of hypercholesterolemia, which has been slightly elevated for a long time but is not considered alarming. He undergoes annual blood and urine tests to monitor his health status. The patient reports having an enlarged bladder, which is significantly large and requires medication to aid in emptying. He denies any associated pain or discomfort. The patient has undergone colon cancer screening with a stool test approximately five years ago, which returned normal results. He also had a colonoscopy a long time ago, which was also normal. [facility] Surgical History No pertinent past surgical history Family History Father No problems noted. Mother No problems noted. Social History Housing: House Alcohol intake: current Alcohol intake frequency: a few times a month Patient Tobacco Use Status: Never used Tobacco e-Cigarette/Vaping Use: Never Used Second Hand Smoke Exposure: No service: No Current occupational status: retired Cognitive needs: No Hearing needs: No Vision needs: No Questionnaire PHQ-9 Over the last 2 weeks, how often have you been bothered by any of the following problems? 1. Little interest or pleasure in doing things: not at all 2. Feeling down, depressed, or hopeless: not at all 3. Trouble falling or staying asleep, or sleeping too much: not at all 4. Feeling tired or having little energy: not at all 5. Poor appetite or overeating: not at all 6. Feeling bad about yourself - or that you are a failure or have let yourself or your family down: not at all 7. Trouble concentrating on things, such as reading the newspaper or watching television: not at all 8. Moving or speaking so slowly that other people could have noticed. Or the opposite - being so fidgety or restless that you have been moving around a lot more than usual: not at all 9. Thoughts that you would be better off or of hurting yourself in some way: not at all Total score: 0 Depression Screening Interpretation: Negative Depression Screening Done: Yes 51692 - PHQ-9 Billing: Yes Source: Developed by Drs. Maximino Bardales, Nidia Estrella, Kervin Knowles and colleagues, with an educational carmelita from [employer]. Thrive Questionnaire Date Thrive assessed: 03/07/25 I am a: Patient What is your living situation today?: I have a steady place to live Within the past 12 months, did the food you bought not last and you didn't have the money to get more?: Never true Within the past 12 months, did you worry whether your food would run out before you got money to buy more?: Never true Do you have trouble paying for medicines?: No Do you have trouble getting transportation to medical appointments?: No Do you have trouble paying your heating and electricity bill?: No Do you have trouble taking care of your child, family member or friend?: No Do you have trouble with day-to-day activities such as bathing, preparing meals, shopping, managing finances, etc.?: No Are you currently unemployed and looking for a job?: No Are you interested in more education?: No Please select the resources that you would like help with: None Currently or been in a relationship where the following occur: No concerns reported THRIVE Score: 0 AUDIT C Alcohol Use Questionnaire (AUDIT-C) 1. How often do you have a drink containing alcohol?: Monthly or less 2. How many drinks containing alcohol do you have on a typical day when you are drinking?: 1 or 2 3. How often do you have six or more drinks on one occasion?: Never Total Score: 1 CYNTHIA-7 AMB Questionnaire CYNTHIA-7 Date CYNTHIA - 7 assessed: 03/07/25 Feeling nervous, anxious, or on edge: 0 = Not at all Not being able to stop or control worryin = Not at all Worrying too much about different things: 0 = Not at all Trouble relaxin = Not at all Being so restless that it is hard to sit still: 0 = Not at all Becoming easily annoyed or irritable: 0 = Not at all Feeling afraid as if something awful might happen: 0 = Not at all Total CYNTHIA-7 score (0-4 normal; 5-9 mild; 10-14 moderate; 15-21 severe): 0 Source: Developed by Drs. Maximino Bardales, Nidia Estrella, Kervin Knowles and colleagues, with an educational carmelita from [employer]. CYNTHIA-7 Assessment Billing CYNTHIA-7 Assessment Tool: CYNTHIA-7 Assessment 42184 Review of Systems Const Denies headache(s) Eyes Denies loss of vision ENT Denies vertigo, Denies dizziness, Denies headache(s) and Denies sore throat Card Denies chest pain, Denies leg edema and Denies lightheadedness Resp Denies cough, Denies hemoptysis and Denies wheezing GI Denies abdominal pain, Denies melena, Denies constipation, Denies diarrhea and Denies vomiting Denies dysuria, Denies urinary frequency, Denies urinary urgency and Reports other (Reports enlarged bladder causing urine retention) Musc Denies arthralgias, Denies joint swelling, Denies numbness and Denies tingling Neuro Denies Abnormal speech present, Denies behavioral changes, Denies vertigo, Denies dizziness, Denies headache(s), Denies loss of vision, Denies memory loss, Denies numbness and Denies tingling Psych Denies anxiety, Denies behavioral changes, Denies depression, Denies memory loss and Denies panic attacks Edgar/Lymph Denies easy bleeding and Denies easy bruising Aller/Immun Denies wheezing Physical exam (Primary Care) Vital Signs: Last Vital Signs Temp 99.0 F 03/07/25 14:24 Pulse 62 03/07/25 14:24 Resp 18 03/07/25 14:24 BP 106/66 03/07/25 14:24 Pulse Ox 97 03/07/25 14:24 Oxygen Delivery Method Room Air 03/07/25 14:24 BMI result Body Mass Index 22.5 Tobacco/Smoking Status: Tobacco use Status Tobacco use date assessed 03/06/24 03/07/25 14:23 Patient Tobacco Use Status Never used Tobacco 03/07/25 14:23 e-Cigarette/Vaping Use Never Used 03/07/25 14:23 PHQ-9: PHQ-9 Score PHQ-9: Total score 0 03/12/25 21:38 Depression Screening Interpretation: Negative Thrive Assessment: Date of Thrive Assessment Date Thrive assessed 03/07/25 03/07/25 14:30 Currently or been in a relationship where the following occur: No concerns reported Const General: healthy appearing, no acute distress, alert and awake Nutritional Appearance: well nourished Orientation/consciousness: oriented to person, oriented to place and oriented to time HENMT Ears: TM's normal bilaterally General nose exam: Normal nasal mucous membranes and turbinates present Eyes Conjunctivae: conjunctivae normal Sclerae: sclerae normal Pupils: Equal, round and reactive pupils present Neck Neck: Yes no lymphadenopathy and Yes no JVD Thyroid: Thyroid normal Carotids: no bruits Resp Effort & Inspection: normal respiratory effort and not tachypneic Auscultation: no crackles, no rales, no rhonchi and no wheezes Cardio Rate: regular rate Rhythm: regular rhythm Heart sounds: no murmurs and normal S1 and S2 GI Palpation (GI): Soft to palpation, nontender, no hepatomegaly and no splenomegaly Auscultation: normal bowel sounds General: Yes no CVA tenderness Back/Spine/Pelvis Back: no CVA tenderness Skin General skin exam: no rashes or lesions noted and dry skin Neuro General: oriented to person, oriented to place and oriented to time Cranial nerves: Yes Equal, round and reactive pupils present Speech: No Abnormal speech present Gait exam (Neuro): Normal gait present Motor exam (neuro): no tremor noted Extrem Right upper extremity: full ROM Left upper extremity: full ROM Right lower extremity: full ROM; no edema Left lower extremity: full ROM; no edema Psych Mental Status: mental status grossly normal Speech and movement: Normal speech and movement present Affect: normal affect Attitude: cooperative Thought process: Normal thought process present Coding Level of Care Code Est Pt Prev Care >65y(55889) Diagnoses Physical exam Z00.00 Urinary retention with incomplete bladder emptying R33.9 Pure hypercholesterolemia E78.00 Hyperlipidemia type: pure hypercholesterolemia Anemia, unspecified type D64.9 Anemia type: unspecified type Additional Codes CYNTHIA-7 Assessment Billing - CYNTHIA-7 Assessment Tool: CYNTHIA-7 Assessment 99467 ([id number]) PHQ-9 - 25840 - PHQ-9 Billing: Yes ([id number]) Time Spent (min) 38 Assessment & Plan Assessment & Plan (1) Physical exam: Code(s): Z00.00 - Encounter for general adult medical examination without abnormal findings Category: Medical Plan: Preventive guidelines reviewed with the patient. The patient labs from last year was reviewed and new labs ordered for the patient to complete as soon as possible. The patient is up-to-date on most preventative vaccines. He is due for his Tdap but wants to hold off since he is leaving for vacation soon and fear possible negative effects. Patient had a Cologuard 5 years ago and a colonoscopy many years ago. All of his colon cancer screenings has been normal, per patient. He continues to be asymptomatic, we will hold off in any further testing at this time. (2) Urinary retention with incomplete bladder emptying: Code(s): R33.9 - Retention of urine, unspecified Category: Medical Plan: Patient reports a history of distended bladder leading to incomplete bladder emptying. He is currently on bethanechol chlorine 50 mg b.i.d. and reports improvement. Follow up with Urology as scheduled (3) HLD (hyperlipidemia): Code(s): E78.5 - Hyperlipidemia, unspecified Category: Medical Qualifiers: Hyperlipidemia type: pure hypercholesterolemia Qualified Code(s): E78.00 - Pure hypercholesterolemia, unspecified Plan: Patient has a history of borderline elevated LDL 121 was his last year result. Reinforced low-cholesterol diet. Lipid panel ordered for the patient to complete as soon as he can to re-evaluate. (4) Anemia: Code(s): D64.9 - Anemia, unspecified Category: Medical Qualifiers: Anemia type: unspecified type Qualified Code(s): D64.9 - Anemia, unspecified Plan: Patient has a history of anemia that has been stabilized. CBC ordered for the patient to complete to reassess. Orders: Orders Lipid Panel 03/08/25 - Other specified disorders of bladder, R33.9 - Retention of urine, unspecified, Z00.00 - Encounter for general adult medical examination without abnormal findings UA CC w/rflx Micro + Cult 03/08/25. - Other specified disorders of bladder, R33.9 - Retention of urine, unspecified, Z00.00 - Encounter for general adult medical examination without abnormal findings Vitamin D 25-OH Total 03/08/25 - Other specified disorders of bladder, R33.9 - Retention of urine, unspecified, Z00.00 - Encounter for general adult medical examination without abnormal findings Complete Blood Count Auto Diff 1 Year Z00.00 - Encounter for general adult medical examination without abnormal findings UA CC w/rflx Micro + Cult 1 Year Z00.00 - Encounter for general adult medical examination without abnormal findings PSA,Total (Free>4and<10) 1 Year Z00.00 - Encounter for general adult medical examination without abnormal findings Complete Blood Count Auto Diff 03/08/25. - Other specified disorders of bladder, R33.9 - Retention of urine, unspecified, Z00.00 - Encounter for general adult medical examination without abnormal findings Comprehensive [place]. Panel Fast 03/08/25 - Other specified disorders of bladder, R33.9 - Retention of urine, unspecified, Z00.00 - Encounter for general adult medical examination without abnormal findings TSH reflex Free T4 03/08/25 N32.89 - Other specified disorders of bladder, R33.9 - Retention of urine, unspecified, Z00.00 - Encounter for general adult medical examination without abnormal findings PSA,Total (Free>4and<10) 03/08/25 N32.89 - Other specified disorders of bladder, R33.9 - Retention of urine, unspecified, Z00.00 - Encounter for general adult medical examination without abnormal findings Comprehensive [place]. Panel Fast 1 Year Z00.00 - Encounter for general adult medical examination without abnormal findings TSH reflex Free T4 1 Year Z00.00 - Encounter for general adult medical examination without abnormal findings Lipid Panel 1 Year Z00.00 - Encounter for general adult medical examination without abnormal findings Vitamin D 25-OH Total 1 Year Z00.00 - Encounter for general adult medical examination without abnormal findings
[2025-03-07 14:24] VITALS: BP 106/66; PULSE 62; RESP 18; TEMP 37.2; O2SAT 97; BMI 22.5
--- OUTSIDE RECORDS SUMMARY | 2025-03-07 15:00 | XMS_ITS | Patient Health Record ---
Author Organization [facility] [address] [place] Address [address] [place] [address] Care Team Providers Care Welfare Supervisor Name Role Phone Sade BECERRA, [facility] Primary Care Provider Unavail able Adolfo Mac Unavailable [phone] Allergies No Known Allergies Reason For Referral No Information Medications Medication SIG (Take, Route, Fr equency, Duration) Notes Start Date End Date Status Walking Boot/Pneumatic As directed Wear Daily; Duration: Until further notice Active Social History Tobacco [...] Status Risk Notes Problem Acquired hallux valgus (09995269) Hallux valgus (acquired), left foot (M20.12) Active confirmed Problem Acquired hammer toe of right foot (0215993131617 105) Other hammer toe(s) (acquired), right foot (M20.41) Active confirmed Problem Acquired hammer toe of left foot (2874807221765 103) Other hammer toe(s) (acquired), left foot (M20.42) Active confirmed Plan Of Treatment Pending Test Test Name Order Date X ray : Foot, right 3V 10/25/2019 Insurance Providers Payer Name Payer Address Payer Phone Subscriber Number Group Number Insured Name Patient Relationship to Insured Coverage Start Date Coverage End Date [facility] 65 Medicare Preferred [address] [place] [address] [id number] Tim Bernabe Self - patient is the insured Medical (General) History Medical History History ICD Code Polio Chicken pox Surgical History Surgery Date(Month/Year) cataract surgery 10/2021
--- OUTSIDE RECORDS SUMMARY | 2025-03-07 15:00 | XMS_ITS | Clinical Summary ---
Author Organization [facility] [address] Address [address] [place] [address] Care Team Providers Care Data Coder Operator Name Role Phone Kayley Staurt MD Primary Care Provider [phone] Medications No known medications Immunizations Immunization Administration Dates Next Due Tdap 08/22/2016 Social [...] 50 08/22/2016 11:44 AM EST Temperature 36.6 C (97.8 F) 08/22/2016 11:44 AM EST Respiratory Rate 18 08/22/2016 11:44 AM EST [...] Bernabe Relation to Subscriber:Self Name:Tim Bernabe Payer ID:[id number] Group ID:[id number] Type:Not on file Address: [address] [address] [employer] ADMIN Member Subscriber Plan / Payer (Ef fective 2014-Present) Name:Tim Bernabe Relation to Subscriber:Self Name:Tim Bernabe Payer ID:[id number] Group ID:[id number] Type:Not on file Address: [address] [address] [employer] AD[employer] Member Subscriber Plan / Payer (Ef fective 2014-Present) Name:Tim Bernabe Relation to Subscriber:Self Name:Tim Bernabe Payer ID:[id number] Group ID:[id number] Type:Not on file Address: [address] [place] [address] [employer] ADMIN Member Subscriber Plan / Payer (Ef fective 2014-Present) Name:Srinivasa Tim Relation to Subscriber:Self Name:Tim Bernabe Payer ID:[id number] Group ID:[id number] Type:Not on file Address: [address] [place] [address] Care Teams Data Coder Operator Relationship Specialty Start Date End Date Kayley Stuart MD [address] [place] [address] [place] [address] PCP - General Internal Medicine 08/22/16
== END 2025-03-07 14:57 | disposition home or self-care (01) ==
LOC: HO.HMCH 14:20
DX: Z00.00 Encounter for general adult medical examination without abnormal findings (principal); R33.9 Retention of urine, unspecified; E78.00 Pure hypercholesterolemia, unspecified; D64.9 Anemia, unspecified

== ENCOUNTER → 2025-03-07 14:19 | Outpatient (BNVA) | payer MEDICARE, SELFPAY | PROVIDERS: PCP Internal Medicine | DX: Z00.00 Encounter for general adult medical examination without abnormal findings (principal); E78.00 Pure hypercholesterolemia, unspecified; N32.89 Other specified disorders of bladder; R33.9 Retention of urine, unspecified; D64.9 Anemia, unspecified | CPT/HCPCS: 96127; 99397 ==

== ENCOUNTER 2025-03-08 06:11 | Outpatient (REF) | payer MEDICARE, SELFPAY ==
--- OUTSIDE RECORDS SUMMARY | 2025-03-08 06:13 | XMS_ITS | Clinical Summary ---
Author Organization [facility] [address] Address [address] [place] [address] Care Team Providers Care Sub Acute Care Nurse Name Role Phone Kayley Stuart MD Primary Care Provider [phone] Medications No known medications Immunizations Immunization Administration [...] Bernabe Relation to Subscriber:Self Name:Tim Bernabe Payer ID:[id number] Group ID:[id number] Type:Not on file Address: [address] [address] [employer] AD[employer] Member Subscriber Plan / Payer (Ef fective 2014-Present) Name:Tim Bernabe Relation to Subscriber:Self Name:Tim Bernabe Payer ID:[id number] Group ID:[id number] Type:Not on file Address: [address] [address] [employer] AD[employer] Member Subscriber Plan / Payer (Ef fective 2014-Present) Name:Tim Bernabe Relation to Subscriber:Self Name:Tim Bernabe Payer ID:[id number] Group ID:[id number] Type:Not on file Address: [address] [place] [address] [employer] AD[employer] Member Subscriber Plan / Payer (Ef fective 2014-Present) Name:Srinivasa Tim Relation to Subscriber:Self Name:Tim Bernabe Payer ID:[id number] Group ID:[id number] Type:Not on file Address: [address] [place] [address] Care Teams Sub Acute Care Nurse Relationship Specialty Start Date End Date Kayley Stuart MD [address] [place] [address] [place] [address] PCP - General Internal Medicine 08/22/16
--- OUTSIDE RECORDS SUMMARY | 2025-03-08 06:13 | XMS_ITS | Patient Health Record ---
Author Organization [facility] [address] [place] Address [address] [place] [address] Care Team Providers Care Sample Mounter Name Role Phone Sade BECERRA, [facility] Primary Care Provider Unavail able Adolfo Mac Unavailable [phone] Allergies No Known Allergies Reason For Referral [...] Status Risk Notes Problem Acquired hallux valgus (03359904) Hallux valgus (acquired), left foot (M20.12) Active confirmed Problem Acquired hammer toe of right foot (5675646055378 105) Other hammer toe(s) (acquired), right foot (M20.41) Active confirmed Problem Acquired hammer toe of left foot (3258620446081 103) Other hammer toe(s) (acquired), left foot (M20.42) Active confirmed Plan Of Treatment Pending Test Test Name Order Date X ray : Foot, right 3V 10/25/2019 Insurance Providers Payer Name Payer Address Payer Phone Subscriber Number Group Number Insured Name Patient Relationship to Insured Coverage Start Date Coverage End Date [facility] 65 Medicare Preferred [address] [place] [address] [id number] Tim Bernabe Self - patient is the insured Medical (General) History Medical History History ICD Code Polio Chicken pox Surgical History Surgery Date(Month/Year) cataract surgery 10/2021
[2025-03-08 06:42] LABS: MANUAL DIFF FLAG NO
[2025-03-08 07:34] LABS: Hematocrit 40.6 % (42.0-52.0); Hemoglobin 13.7 g/dl (14.0-18.0); Imm Gran Abs Auto 0.02 X10*3/uL (0.00-0.03); Imm Gran Pct Auto 0.5 % (0.0-0.4); Lymphocytes Absolute Auto 1.4 X10*3/uL (1.2-4.9); Mean Corpuscular HGB Conc 33.7 g/dl (31.0-36.0); Mean Corpuscular Hemoglobin 30.0 pg (27.0-33.0); Mean Corpuscular Volume 88.8 fL (80.0-98.0); NRBC Abs Auto 0.000 X10*3/uL (0.0-0.012); NRBC Pct Auto 0.0 /100WBC (0.0-0.2); Platelet Count 194 X10*3/uL (160-400); Red Blood Count 4.57 X10*6/uL (4.60-5.80); White Blood Count 4.4 X10*3/uL (4.8-10.8)
[2025-03-08 07:51] LABS: Appearance Urine Clear; Glucose Urine UA Negative (Negative); PH 6.0 (5.0-9.0); Specific Gravity - Urine 1.015 (1.005-1.025)
[2025-03-08 08:11] LABS: Alanine Aminotransferase 24 U/L (0-40); Albumin Level 4.1 g/dL (3.5-5.0); Alkaline Phosphatase 95 U/L (39-117); Anion Gap 11 (12-20); Aspartate Amino Transferase 34 U/L (5-37); Blood Urea Nitrogen 18 mg/dL (9-16); Calcium 9.1 mg/dL (8.4-10.2); Carbon Dioxide 27 mmol/L (22-29); Chloride 108 mmol/L (96-108); Cholesterol 204 mg/dL (<200); Estimated Glomerular Filt Rate > 60; HDL Cholesterol 60 mg/dL (>40); Potassium 4.0 mmol/L (3.3-5.1); Sodium 142 mmol/L (135-145); Total Protein 6.4 g/dL (6.5-8.0); Triglycerides 67 mg/dL (<150)
[2025-03-08 08:24] LABS: PSA,Total (Free>4and<10) 4.32 ng/mL (0.00-4.00)
[2025-03-09 13:02] LABS: Free Prostate Spec Ag 0.8 ng/mL; Percent Free Prostate Spec Ag 18 % (calc) (>25)
== END 2025-03-08 06:12 | disposition home or self-care (01) ==
LOC: HO.LAB 06:11
DX: Z00.00 Encounter for general adult medical examination without abnormal findings (principal); R33.9 Retention of urine, unspecified; N32.89 Other specified disorders of bladder
CPT/HCPCS: 36415; 80053; 80061; 81003; 82306; 84153; 84154; 84443; 85025

== ENCOUNTER 2025-03-20 05:58 | Outpatient (REF) | payer MEDICARE, SELFPAY ==
--- OUTSIDE RECORDS SUMMARY | 2025-03-20 06:01 | XMS_ITS | Clinical Summary ---
Author Organization [facility] Address [address] [place] [phone] Phone Care Team Providers Care Backer Up Name Role Phone Pcp, Unknown Primary Care Provider Unavailabl e Allergies No known active allergies Medications No known medications Social History Tobacco Use Types Packs/Day Years Used Date Smoking Tobacco: Never Smokeless Tobacco: Never Education Answer Date Recorded Are you interested in more education? Not on leah e 12/18/2022 Are you concerned about learning? Not on file 12/18/2022 No 12/18/2022 No 12/18/2022 Digital Access Answer Date Recorded No 01/16/2023 No 01/16/2023 No 01/16/2023 Reliable internet access at home? Not on file 01/16/2023 Device with a working camera? Not on file Sex and Gender Information Value Date Recorded Sex Assigned at Not on file Legal Sex Male 1:31 PM EDT Gender Identity Not on file Sexual Orientation Not on file Last Filed Vital Signs Vital Sign Reading Time Taken Comments Blood Pressure 109/65 12/25/2019 1:41 PM EDT Pulse 58 12/25/2019 1:41 PM EDT Temperature 36.9 C (98.4 F) 12/25/2019 1:41 PM EDT Respiratory Rate 18 12/25/2019 1:41 PM EDT Oxygen Saturation 100% 12/25/2019 1:41 PM EDT Inhaled Oxygen Concentration - - Weight 77.1 kg (170 lb) 12/25/2019 1:41 PM EDT Height 180.3 cm (5' 11 ) 12/25/2019 1:41 PM EDT Body Mass Index 23.71 12/25/2019 1:41 PM EDT Plan of Treatment Health Maintenance Due Date Last Done Comments Adult Td,Tdap Booster 1950 LIPID PANEL 1950 DEPRESSION SCREENING 1962 HEPATITIS C SCREENING 1968 COLOGUARD 11/15/1995 COLONOSCOPY 11/15/1995 COLORECTAL CANCER SCREENING 11/15/1995 FIT TEST 11/15/1995 FOBT 11/15/1995 SIGMOIDOSCOPY 11/15/1995 VIRTUAL COLONOSCOPY 11/15/1995 PNEUMOCOCCAL VACCINES (50+ y ears) (1 of 1 - PCV) 2000 ZOSTER VACCINES (1 of 2) 2000 COVID-19 VACCINE (2 - 2023-2 5 season) 2024 10/25/2020 RSV VACCINE (1 - 1-dose 75+ series) 2025 SMOKING STATUS SCREENING (On ce After 26 Yrs) Completed 12/25/2019 HEPATITIS A VACCINES Aged Out No long er eligible based on patient's age to complete this topic HIB VACCINES Aged Out No longer eligi ble based on patient's age to complete this topic MENINGOCOCCAL VACCINES (ACWY) Aged Out No longer eligible based on patient's age to complete this topic MENINGOCOCCAL VACCINES (B) Aged Out N o longer eligible based on patient's age to complete this topic Medical Devices Not on file Insurance MEDICARE PPO BLUE REPLACEMENT MEDICARE PPO BLUE REPLACEMENT MEDICARE PPO BLUE REPLACEMENT MEDICARE PPO BLUE REPLACEMENT MEDICARE PPO BLUE [place] [place] [address] MEDICARE PPO BLUE [place] [place] [address] MEDICARE PPO BLUE [place] [address] MEDICARE PPO BLUE [place] [place] [address] MEDICARE PPO BLUE REPLACEMENT Care Teams Backer Up Relationship Specialty Start Date End Date Pcp, Unknown PCP - General 12/25/19 Additional Source Comments The information contained in this document represents components of the legal health record. It is not the complete legal health record.[facility]
--- OUTSIDE RECORDS SUMMARY | 2025-03-20 06:01 | XMS_ITS | Patient Health Record ---
Author Organization [facility] Oskar lisa Ghassan Address [address] [place] [address] Care Team Providers Care Terra Cotta Roofer Helper Name Role Phone Sade BECERRA, [facility] Primary Care Provider Unavail able Adolfo Mac Unavailable [phone] Allergies No Known Allergies Reason For Referral [...] Problem Status W/U Status Risk Notes Problem Hallux valgus (acquired), left foot (M20.12) Active confirmed Problem Acquired hammer toe of right foot (7722055056409 105) Other hammer toe(s) (acquired), right foot (M20.41) Active confirmed Problem Acquired hammer toe of left foot (2408951572337 103) Other hammer toe(s) (acquired), left foot (M20.42) Active confirmed Plan Of Treatment Pending Test Test Name Order Date X ray : Foot, right 3V 10/25/2019 Insurance Providers Payer Name Payer Address Payer Phone Subscriber Number Group Number Insured Name Patient Relationship to Insured Coverage Start Date Coverage End Date [facility] 65 Medicare Preferred [address] [place] [address] [id number] Tim Bernabe Self - patient is the insured Medical (General) History Medical History History ICD Code Polio Chicken pox Surgical History Surgery Date(Month/Year) cataract surgery 10/2021
[2025-03-20 08:07] LABS: PSA,Total (Free>4and<10) 3.62 ng/mL (0.00-4.00)
== END 2025-03-20 05:59 | disposition home or self-care (01) ==
LOC: HO.LAB 05:58
DX: R97.20 Elevated prostate specific antigen [PSA] (principal)
CPT/HCPCS: 36415; 84153

== ENCOUNTER 2025-04-06 07:38 | Outpatient (AMB) | payer MEDICARE, SELFPAY ==
--- NOTE | 2025-04-06 07:38 | MHC.OFFVIS ---
Intake Visit Reasons: psa concerns Intake Note: Pt presents to the office today for follow up for Telehealth concern about PSA levels Urology Meds : Bethanecol,Sildenafil Blood Thinners : none Manager Cargo Required: No Accompanied by: Self / Same As Patient Allergies No Known Allergies Allergy (Mild, Verified 04/06/25 07:39) NOT APPLICABLE HPI Comments Details: Tim is a very pleasant male. He is a patient of . He is seen for the following urologic conditions - incomplete bladder emptying - bladder diverticula Telemedicine Evaluation 15 min Consultation [facility]an Video Discussed PSA testing Some variability On repeat testing he is well within acceptable limits Primary urologic concern is bladder emptying and neurogenic failure Continue bethanechol Lower urinary tract symptoms Extraordinarily large dilated bladder Minimal urinary symptoms States has adequate stream, minimal nocturia, feels he has effective emptying in his able to go 2-3 hours in between urinating His primary symptom is a feeling of rectal fullness Finds he tries to empty his bowel and there is nothing present At that point he will then urinate and the rectal pressure will resolve CT finding - extraordinarily large dilated bladder, 28 cm long by 15 cm x 10 cm. Minimum volume proximally 4000 cc Creatinine 1.0 PSA 10/16 3.3, 03/16 3.6 Prior Uroflow following trial of bethanechol - 12/15 Q max 8.8 with average 4.4. Voided volume 421. Void time 65 seconds. PVR 24 cc Poorly functioning bladder but significant improvement with bethanechol PFSH Surgical History No pertinent past surgical history Family History Father No problems noted. Mother No problems noted. Social History Housing: House Alcohol intake: current Alcohol intake frequency: a few times a month Patient Tobacco Use Status: Never used Tobacco e-Cigarette/Vaping Use: Never Used Second Hand Smoke Exposure: No service: No Current occupational status: retired Cognitive needs: No Hearing needs: No Vision needs: No Review of Systems Const All systems reviewed & are unremarkable except as noted in HPI and below Reports no additional complaints Resp Reports no additional complaints GI Reports no additional complaints Reports as per HPI [facility] [place] no additional complaints Physical Exam Telemedicine evaluation Appropriate responses Regular breathing rate and rhythm HEENT Head: Yes normal to inspection Ears: hearing grossly normal bilaterally Eyes General: appearance normal, both eyes and all related structures Neck Neck: Yes normal visual inspection Chest Chest palpation & inspection: normal inspection of the chest Resp Effort & Inspection: normal respiratory effort and able to speak in complete sentences Telehealth Telehealth Telehealth Platform: [facility] Location of provider rendering services: practice address Location of patient: address on file Patient Identification confirmed using: Name, : Yes Telehealth method: voice only Patient verbally consented to treatment: Yes Patient verbally consented to billing insurance company: Yes Patient informed of any privacy concerns related to visit: Yes Minutes spent on Phone/Video with Pt.: 15 Assessment & Plan Assessment & Plan (1) Urinary retention with incomplete bladder emptying: Code(s): R33.9 - Retention of urine, unspecified Category: Medical (2) Bladder diverticulum: Code(s): N32.3 - Diverticulum of bladder Category: Medical Plan Six-month follow-up PVR office Patient Instructions: This note is constructed using voice recognition software. While every effort has been made to ensure accuracy engineering technical specialist errors may have been included. Imaging studies, laboratory and physical exam results were discussed and reviewed in detail. No major barriers to patient understanding were identified. An opportunity to ask questions regarding the treatment plan was provided. All questions were answered. The patient expressed understanding and agreement with the above treatment plan. The patient is aware they should contact our office by phone for worsening of their current condition or the appearance of new urologic symptoms. Compliance is encouraged with any medications and followup testing that is ordered. It is a privilege to participate in the urologic care of your patient. If you have any questions or concerns regarding treatment for the above conditions, or other urologic issues, please do not hesitate to contact me. The office telephone contact is [phone]. Sincerely, Dr Lion Salgado MD, [facility] - Urology Compassionate Specialist Care for the Genitourinary System Coding Level of Care Code Tele Est Pt Level 3 (26061) Complex EM visit Add On G2211 Diagnoses Urinary retention with incomplete bladder emptying R33.9 Bladder diverticulum N32.3
--- OUTSIDE RECORDS SUMMARY | 2025-04-06 07:39 | XMS_ITS | Clinical Summary ---
Author Organization [facility] Address [address] [place] [address] Phone Care Team Providers Care Lehr Cutter Name Role Phone Pcp, Unknown Primary Care [...] PPO BLUE REPLACEMENT MEDICARE [place] [address] [place] [address] MEDICARE [place] [address] [place] [address] MEDICARE [address] [place] [address] [place] [address] [address] [address] [place] [address] MEDICARE PPO BLUE REPLACEMENT Care Teams Lehr Cutter Relationship Specialty Start Date End Date Pcp, Unknown PCP - General 12/25/19 Additional Source Comments The information contained in this document represents components of the legal health record. It is not the complete legal health record.[facility]
--- OUTSIDE RECORDS SUMMARY | 2025-04-06 07:39 | XMS_ITS | Patient Health Record ---
Author Organization [facility] Oskar lisa [place] Address [address] [place] [address] Care Team Providers Care Cruise Consultant Name Role Phone Sade BECERRA, [facility] Primary Care Provider Unavail able Adolfo Mac Unavailable [phone] Allergies No Known Allergies Reason For Referral [...] Problem Acquired hammer toe of right foot ([id number] 105) Other hammer toe(s) (acquired), right foot (M20.41) Active confirmed Problem Acquired hammer toe of left foot ([id number] 103) Other hammer toe(s) (acquired), left foot (M20.42) Active confirmed Plan Of Treatment Pending Test Test Name Order Date X ray : Foot, right 3V 10/25/2019 Insurance Providers Payer Name Payer Address Payer Phone Subscriber Number Group Number Insured Name Patient Relationship to Insured Coverage Start Date Coverage End Date [facility] 65 Medicare Preferred [address] [place] [address] [id number] Tim Bernabe Self - patient is the insured Medical (General) History Medical History History ICD Code Polio Chicken pox Surgical History Surgery Date(Month/Year) cataract surgery 10/2021
--- OUTSIDE RECORDS SUMMARY | 2025-04-06 07:39 | XMS_ITS | Clinical Summary ---
Author Organization [facility] [address] Address [address] [place] [address] Care Team Providers Care Education Faculty Member Name Role Phone Kayley Stuart MD Primary Care Provider [phone] Medications No known medications Immunizations Immunization Administration [...] Bernabe Relation to Subscriber:Self Name:Tim Bernabe Payer ID:[id number] Group ID:[id number] Type:Not on file Address: [address] [address] DIVERS[employer] ADMIN Member Subscriber Plan / Payer (Ef fective 2014-Present) Name:Tim Bernabe Relation to Subscriber:Self Name:Tim Bernabe Payer ID:[id number] Group ID:[id number] Type:Not on file Address: [address] [address] [employer] ADMIN Member Subscriber Plan / Payer (Ef fective 2014-Present) Name:Tim Bernabe Relation to Subscriber:Self Name:Tim Bernabe Payer ID:[id number] Group ID:[id number] Type:Not on file Address: [address] [place] [address] DIV[employer] ADMIN Member Subscriber Plan / Payer (Ef fective 2014-Present) Name:Srinivasa Tim Relation to Subscriber:Self Name:Tim Bernabe Payer ID:[id number] Group ID:[id number] Type:Not on file Address: [address] [place] [address] Care Teams Education Faculty Member Relationship Specialty Start Date End Date Kayley Stuart MD [address] [place] [address] [place] [address] PCP - General Internal Medicine 08/22/16
== END 2025-04-06 09:12 | disposition home or self-care (01) ==
LOC: HO.HUSH 07:38
PROVIDERS: Visit Provider Urology
DX: R33.9 Retention of urine, unspecified (principal); N32.3 Diverticulum of bladder
CPT/HCPCS: 99213; G2211